=== PATIENT | female | born 1970 | race Hispanic/Latino ===

== ENCOUNTER 2018-03-28 13:38 | Outpatient (CLI) | payer BC ==
--- NOTE | 2018-03-28 14:31 | RAD ---
FOUR VIEWS RIGHT KNEE: Comparison: None. History: Right knee pain. FINDINGS: Four views of the right knee shows no evidence of acute fracture or dislocation. No degenerative lay ges are seen. No knee effusion is seen. IMPRESSION: Unremarkable exam. POS: [facility]
--- NOTE | 2018-03-28 14:32 | RAD ---
FOUR VIEWS LEFT KNEE: Comparison: None. History: Left knee pain. FINDINGS: Four views of the left knee shows no evidence of acute fracture or dislocation. No soft tissue swelli ng is seen. No knee effusion is seen. No degenerative changes are present. IMPRESSION: Unremarkable exam. POS: [facility]
--- NOTE | 2018-03-28 15:00 | RAD ---
LUMBAR SPINE TWO VIEWS: HISTORY: Low back pain. FINDINGS: No fracture, subluxation, or bony destruction is seen. Minimal degenerative changes are seen in the lower lumbar spine. An IUD is present. POS: [facility]
--- NOTE | 2018-03-28 15:01 | RAD ---
AP PELVIS: HISTORY: Pelvic pain. FINDINGS: The pelvis is intact and appears unremarkable. No focal lytic or blastic lesions seen. Hip joints a re unremarkable. Femoral heads are normally maintained. An IUD device overlies the mid pelvis. The SI joints appear symmetric, without evidence of significant sclerosis. IMPRESSION: Unremarkable anterior-posterior pelvis. POS: [facility]
== END 2018-03-28 13:39 | disposition home or self-care (01) ==
LOC: BICRAD 13:38
PROVIDERS: ATTEND Family Medicine
DX: M54.5 Low back pain (principal); R93.7 Abnormal findings on diagnostic imaging of other parts of musculoskeletal system; R10.2 Pelvic and perineal pain
CPT/HCPCS: 72100; 72170

== ENCOUNTER 2018-09-13 08:22 | Outpatient (CLI) | payer BC ==
--- NOTE | 2018-09-13 09:00 | CT ---
CT Brain W WO Con HISTORY: Headache COMPARISON: None. FINDINGS: No evidence of infarct, hemorrhage, mass, midline shift or abnormal extra-axial fluid colle ctions is seen. The ventricular size is normal and the basilar cisterns are patent. No abnormal postcontrast enhancement is seen. The bony calvarium is intact. The visualized paranasal sinuses and mastoid air cells are well-aerated. IMPRESSION: Normal exam.
[2018-09-13] MEDS ORDERED: ISOVUE-370 76%-LOCM 1 ML ONE (10:14)
== END 2018-09-13 08:23 | disposition home or self-care (01) ==
LOC: BICCT 08:22
PROVIDERS: ATTEND Family Medicine
DX: G44.201 Tension-type headache, unspecified, intractable (principal)
CPT/HCPCS: 70470; Q9966

== ENCOUNTER 2021-05-22 15:09 | Emergency (ER) | payer BC ==
[2021-05-22 15:45] LABS: #Basophils 0.1 thou/uL (0.0-0.2); #Eosinphils 0.2 thou/uL (0.0-0.7); #Lymphocytes 3.1 thou/uL (1.20-3.40); #Monocytes 0.5 thou/uL (0.11-0.59); #Neutrophils 4.2 thou/uL (1.40-6.50); %Basophils 1.1 % (0.0-1.0); %Eosinophils 2.4 % (0.0-10.0); %Lymphocytes 38.5 % (21.0-51.0); %Monocytes 5.9 % (0.0-10.0); %Neutrophils 52.1 % (42.0-75.0); Mean Corpuscular HGB CONC 33.4 g/dL (32.0-36.0); Mean Corpuscular Volume 95.9 fL (78.0-98.0); Mean Platelet Volume 8.3 fL (7.4-10.4); Platelet Count 227 thou/uL (130-400); RBC Distribution Width 11.5 % (11.5-14.5); Red Blood Cell (RBC) Count 4.38 mill/uL (4.20-5.40); White Blood Cell (WBC) Count 8.1 thou/uL (4.8-10.8)
[2021-05-22 16:02] LABS: ALT (SGPT) 19 U/L (8-55); AST (SGOT) 25 U/L (5-34); Albumin 4.5 g/dL (3.5-5.0); Alkaline Phosphatase 69 U/L (40-110); Anion Gap 14 mmol/L (10-20); BUN (Urea Nitrogen) 12 mg/dL (7.0-18.7); Bilirubin, Total 0.5 mg/dL (0.2-1.2); Calc. Creatinine Clearance 0 mL/min (70-130); Calcium 9.6 mg/dL (7.8-10.44); Carbon Dioxide 24 mmol/L (22-29); Chloride 104 mmol/L (98-107); Globulin 3.4 g/dL (2.4-3.5); Glucose 142 mg/dL (70-105); Potassium 3.3 mmol/L (3.5-5.1); Protein, Total 7.9 g/dL (6.0-8.3); Sodium 139 mmol/L (136-145)
[2021-05-22] MEDS ORDERED: Aspirin 325 MG TAB ONE (19:05)
== END 2021-05-22 19:22 | disposition home or self-care (01) ==
LOC: ERS 15:09
DX: R00.2 Palpitations (principal); R07.89 Other chest pain; R00.0 Tachycardia, unspecified; J45.909 Unspecified asthma, uncomplicated
CPT/HCPCS: 36415; 71045; 80053; 84443; 84484; 85025; 93005

== ENCOUNTER 2024-10-10 10:11 | Observation (INO) | payer BC, SELFPAY ==
[2024-10-10 10:49] LABS: #Basophils 0.04 10x3/uL (0.0-0.2); #Eosinophils 0.21 10x3/uL (0.0-0.7); #Monocytes 0.67 10x3/uL (0.11-0.59); #Neutrophils 4.31 10x3/uL (1.40-6.50); %Basophils 0.5 % (0.0-1.0); %Eosinophils 2.8 % (0.0-10.0); %Lymphocytes 29.6 % (21.0-51.0); %Monocytes 9.0 % (0.0-10.0); %Neutrophils 57.7 % (42.0-75.0); Hematocrit 39.6 % (36.0-47.0); Hemoglobin 13.1 g/dL (12.0-16.0); Mean Corpuscular Hemoglobin 29.9 pg (27.0-31.0); Mean Corpuscular Volume 90.4 fL (78.0-98.0); Platelet Count 228 10x3/uL (130-400); Red Blood Cell (RBC) Count 4.38 mill/uL (4.20-5.40); White Blood Cell (WBC) Count 7.47 10x3/uL (4.8-10.8)
[2024-10-10 11:28] LABS: ALT (SGPT) 24 U/L (Less than 34); AST (SGOT) 31 U/L (11-34); Albumin 4.1 g/dL (3.1-4.5); Alkaline Phosphatase 118 U/L (40-110); Anion Gap 15 mmol/L (10-20); BUN (Urea Nitrogen) 16 mg/dL (9.8-20.1); Bilirubin, Total 0.6 mg/dL (0.3-1.2); Calc. Creatinine Clearance 0 mL/min (70-130); Calcium 9.5 mg/dL (7.8-10.44); Carbon Dioxide 22 mmol/L (22-29); Chloride 103 mmol/L (98-107); Globulin 3.7 g/dL (2.4-3.5); Glucose 96 mg/dL (70-105); Potassium 3.9 mmol/L (3.5-5.1); Sodium 136 mmol/L (136-145)
[2024-10-10] MEDS ORDERED: Aspirin Chewable 81 MG TAB ONE (11:47)
[2024-10-10] MEDS ORDERED: Senokot S 8.6-50 MG TAB PO PRN (16:42)
[2024-10-10] MEDS ORDERED: Ketorolac Tromethamine 30 MG (1 mL) VIAL IVP PRN (16:42)
[2024-10-10] MEDS ORDERED: Nitroglycerin 0.4 MG TAB (25 Tab Bottle) SL PRN (16:42)
[2024-10-10 19:13] VITALS: BMI 33.3
[2024-10-10] MEDS: Famotidine 20 MG TAB PO SCH (21:26)
[2024-10-11 05:48] LABS: #Basophils 0.04 10x3/uL (0.0-0.2); #Eosinophils 0.40 10x3/uL (0.0-0.7); #Monocytes 0.65 10x3/uL (0.11-0.59); #Neutrophils 3.73 10x3/uL (1.40-6.50); %Basophils 0.6 % (0.0-1.0); %Eosinophils 5.6 % (0.0-10.0); %Lymphocytes 32.2 % (21.0-51.0); %Monocytes 9.1 % (0.0-10.0); %Neutrophils 52.2 % (42.0-75.0); Hematocrit 40.7 % (36.0-47.0); Hemoglobin 13.4 g/dL (12.0-16.0); Mean Corpuscular Hemoglobin 30.0 pg (27.0-31.0); Mean Corpuscular Volume 91.3 fL (78.0-98.0); Platelet Count 231 10x3/uL (130-400); Red Blood Cell (RBC) Count 4.46 mill/uL (4.20-5.40); White Blood Cell (WBC) Count 7.14 10x3/uL (4.8-10.8)
[2024-10-11 06:14] LABS: Anion Gap 16 mmol/L (10-20); BUN (Urea Nitrogen) 17 mg/dL (9.8-20.1); Calc. Creatinine Clearance 143 mL/min (70-130); Calcium 9.1 mg/dL (7.8-10.44); Carbon Dioxide 20 mmol/L (22-29); Cardiac Risk 3.1 (Less than 4.5); Chloride 108 mmol/L (98-107); Cholesterol 178 mg/dl (< 200 Desired); Glucose 94 mg/dL (70-105); HDL Cholesterol 57 mg/dL (>60 Neg Risk); LDL Cholesterol, Calculated 105 mg/dL; Potassium 4.1 mmol/L (3.5-5.1); Sodium 140 mmol/L (136-145); Triglycerides 80 mg/dL (Less than 150)
[2024-10-11] MEDS: Enoxaparin 40 MG (0.4 mL) SYRINGE SC SCH (08:25)
[2024-10-11] MEDS: Aspirin Chewable 81 MG TAB PO SCH (08:26)
[2024-10-11] MEDS: Acetaminophen 325 MG TAB PO PRN (13:54)
[2024-10-11 16:44] VITALS: BP 108/52; TEMP 98.3
== END 2024-10-11 17:12 | disposition home or self-care (01) ==
LOC: ERS 10:11 → INTOOBSV 15:53 → 2NO 15:53
PROVIDERS: ADMIT Family Medicine; ATTEND Family Medicine
DX: R07.89 Other chest pain (principal); J45.909 Unspecified asthma, uncomplicated; K21.9 Gastro-esophageal reflux disease without esophagitis; Z98.51 Tubal ligation status; Z79.899 Other long term (current) drug therapy
CPT/HCPCS: 36415; 71045; 78452; 80048; 80053; 80061; 84484; 85025; 93005; 93017; 94760; A9502; J1650; J2785